=== PATIENT | male | born 1970 | race African-American/Black ===

== ENCOUNTER 2019-09-12 10:20 | Inpatient (IN) | payer MEDICAID ==
[~2019-09-12] VITALS: Ht 188 cm; Wt 116.1 kg
[2019-09-12] MEDS ORDERED: ASPirin 81 mg TAB PO ONE (10:30)
[2019-09-12 10:58] LABS: Basophils # (auto) 0 10 ^3/uL (0-0.2); Basophils % (auto) 0.2 % (0.0-2.0); Eosinophils # (auto) 0.1 10 ^3/uL (0-0.8); Eosinophils % (auto) 2.3 % (0.0-7.0); Hematocrit 38.9 % (41.0-53.0); Hemoglobin 13.6 g/dL (13.5-17.5); Lymphocytes % (auto) 35.1 % (10.0-50.0); Mean Corpuscular Hemoglobin 31.7 pg (28.0-32.0); Mean Corpuscular Volume 90.4 fL (80.0-100.0); Monocytes # (auto) 0.5 10 ^3/uL (0-1.3); Monocytes % (auto) 8.8 % (0.0-12.0); Neutrophils % (auto) 53.6 % (37.0-80.0); Nucleated Red Blood Cells % 0.1 %; Platelet Count (auto) 188 10^3/uL (140-450); Red Cell Distribution Width 15.1 % (11.8-14.3); White Blood Cell 5.6 10^3/uL (4.4-10.8)
[2019-09-12 11:16] LABS: Albumin 3.7 g/dL (3.4-5.0); Anion Gap 5 (5-15); Blood Urea Nitrogen 6 mg/dL (7-18); Calcium 8.9 mg/dL (8.5-10.1); Carbon Dioxide 28 mmol/L (21-32); Chloride 105 mmol/L (98-107); Glucose 99 mg/dL (74-106); Potassium 3.7 mmol/L (3.5-5.1); Sodium 138 mmol/L (136-145)
[2019-09-12 11:21] LABS: Alanine Aminotransferase 58 U/L (16-61); Alkaline Phosphatase 73 U/L (45-117); Aspartate Aminotransferase 37 U/L (15-37); BUN/Creatinine Ratio 4.5; Bilirubin, Total 0.5 mg/dL (0.2-1.0); GFR African American 73 mL/min; GFR Non-African American 60 mL/min; Total Protein 8.3 g/dL (6.4-8.2)
[2019-09-12 11:55] LABS: Urine WBC None Seen /hpf (0 - 3)
[2019-09-12 12:04] LABS: Urine Bacteria NONE SEEN /hpf (None Seen); Urine Blood Negative /uL (Negative); Urine Specific Gravity 1.012 (1.001-1.035)
[2019-09-12] MEDS ORDERED: hydrALAZINE HCL 20 MG/ML VL IV PRN (12:30)
[2019-09-12] MEDS ORDERED: NITROGLYCERIN 0.4 MG SL TAB SL PRN (12:30)
[2019-09-12] MEDS ORDERED: ONDANSETRON HCL 4 MG/2 ML VIAL IV PRN (12:30)
[2019-09-12] MEDS ORDERED: MORPHINE SULF INJ 2 MG/ML SYRINGE 1ML IV PRN ×2 (12:30)
[2019-09-12] MEDS ORDERED: HYDROcodone-ACET 5/325MG TAB PO PRN (12:30)
[2019-09-12 14:27] LABS: Magnesium 2.2 mg/dL (1.6-2.6)
[2019-09-12] MEDS ORDERED: ASPI-404 PO (15:22)
[2019-09-12 17:00] VITALS: BP 144/99
[2019-09-12] MEDS: ATORVASTATIN 20 MG TAB PO SCH (21:30)
[2019-09-12] MEDS: METOPROLOL TARTRATE 25 MG TAB PO SCH (21:30)
[2019-09-12 21:47] VITALS: BP 154/84
[2019-09-13 05:00] VITALS: BP 162/82
[2019-09-13 05:49] LABS: Basophils # (auto) 0 10 ^3/uL (0-0.2); Basophils % (auto) 0.4 % (0.0-2.0); Eosinophils # (auto) 0.2 10 ^3/uL (0-0.8); Eosinophils % (auto) 2.7 % (0.0-7.0); Hematocrit 42.3 % (41.0-53.0); Hemoglobin 14.4 g/dL (13.5-17.5); Lymphocytes # (auto) 2.2 10 ^3/uL (0.4-5.4); Lymphocytes % (auto) 39.5 % (10.0-50.0); Mean Corpuscular Hemoglobin 30.9 pg (28.0-32.0); Mean Corpuscular Hgb Conc. 34.1 g/dL (32.0-36.0); Mean Corpuscular Volume 90.6 fL (80.0-100.0); Monocytes # (auto) 0.5 10 ^3/uL (0-1.3); Monocytes % (auto) 9.3 % (0.0-12.0); Neutrophils # (auto) 2.7 10 ^3/uL (1.6-8.6); Neutrophils % (auto) 48.1 % (37.0-80.0); Nucleated Red Blood Cells % 0.1 %; Platelet Count (auto) 197 10^3/uL (140-450); Red Blood Cells 4.67 10^6/uL (4.5-5.90); Red Cell Distribution Width 14.5 % (11.8-14.3); White Blood Cell 5.6 10^3/uL (4.4-10.8)
[2019-09-13 06:04] LABS: INR 1.03 (0.9-1.15); Partial Thromboplastin Time 28.3 sec (23.64-32.05)
[2019-09-13 06:20] LABS: BUN/Creatinine Ratio 7.2
[2019-09-13] MEDS ORDERED: ADENOSINE 98 MG in GIVE UN-DILUTED 0 ML IV STA (08:24)
[2019-09-13] MEDS: ASPirin-EC 81 mg tab PO SCH ×2 (08:49→10:13)
[2019-09-13] MEDS: FAMOTIDINE 20 MG TAB PO SCH ×2 (08:50→10:13)
[2019-09-13] MEDS: LISINOPRIL 10 MG TAB PO SCH ×2 (08:50→10:14)
[2019-09-13] MEDS: METOPROLOL TARTRATE 25 MG TAB PO SCH ×3 (08:50→22:17)
[2019-09-13 08:56] VITALS: BP 166/97
[2019-09-13 09:00] VITALS: BP 148/95
[2019-09-13 13:00] VITALS: BP_SYST 152; BP_SYST 155; BP_SYST 158; BP_DIAS 112; BP_DIAS 88; BP_DIAS 93
[2019-09-13 17:00] VITALS: BP 155/85
[2019-09-13] MEDS: ACETAMINOPHEN 500 MG TAB PO PRN (17:09)
[2019-09-13 22:00] VITALS: BP 153/88
[2019-09-13] MEDS: ATORVASTATIN 20 MG TAB PO SCH (22:17)
[2019-09-14] MEDS: SODIUM CHLORIDE 0.9% 1,000 ML IV SCH ×3 (00:07→16:53)
[2019-09-14] MEDS: ACETAMINOPHEN 500 MG TAB PO PRN (00:59)
[2019-09-14 05:00] VITALS: BP 122/75
[2019-09-14 08:30] VITALS: BP 138/98
[2019-09-14 08:58] LABS: Basophils # (auto) 0 10 ^3/uL (0-0.2); Basophils % (auto) 0.6 % (0.0-2.0); Eosinophils # (auto) 0.1 10 ^3/uL (0-0.8); Eosinophils % (auto) 0.8 % (0.0-7.0); Hematocrit 42.1 % (41.0-53.0); Hemoglobin 14.5 g/dL (13.5-17.5); Lymphocytes # (auto) 1.4 10 ^3/uL (0.4-5.4); Lymphocytes % (auto) 20.4 % (10.0-50.0); Mean Corpuscular Hgb Conc. 34.3 g/dL (32.0-36.0); Mean Corpuscular Volume 90.3 fL (80.0-100.0); Monocytes # (auto) 0.4 10 ^3/uL (0-1.3); Monocytes % (auto) 6.3 % (0.0-12.0); Neutrophils # (auto) 4.8 10 ^3/uL (1.6-8.6); Neutrophils % (auto) 71.9 % (37.0-80.0); Platelet Count (auto) 216 10^3/uL (140-450); Red Blood Cells 4.66 10^6/uL (4.5-5.90); Red Cell Distribution Width 14.6 % (11.8-14.3); White Blood Cell 6.7 10^3/uL (4.4-10.8)
[2019-09-14 09:00] VITALS: BP 138/96
[2019-09-14 09:13] LABS: INR 1.06 (0.9-1.15); Partial Thromboplastin Time 29.1 sec (23.64-32.05)
[2019-09-14 09:15] LABS: BUN/Creatinine Ratio 7.9; Calcium 9.1 mg/dL (8.5-10.1); Potassium 3.9 mmol/L (3.5-5.1)
[2019-09-14] MEDS: METOPROLOL TARTRATE 25 MG TAB PO SCH ×2 (10:00→20:18)
[2019-09-14] MEDS: FAMOTIDINE 20 MG TAB PO SCH (10:00)
[2019-09-14] MEDS: LISINOPRIL 10 MG TAB PO SCH (10:00)
[2019-09-14] MEDS: ASPirin-EC 81 mg tab PO SCH (10:00)
[2019-09-14] MEDS ORDERED: LORazepam 2MG/ML-1ML VIAL IV ONE (10:30)
[2019-09-14] MEDS ORDERED: ANGIOMAX 250 MG VIAL IV ONE (10:52)
[2019-09-14] MEDS ORDERED: fentaNYL CITRATE 100 MCG/2 ML VL ONE (10:52)
[2019-09-14] MEDS ORDERED: MIDAZOLAM HCL 1MG/1ML-2 ML VIAL ONE (10:52)
[2019-09-14] MEDS ORDERED: HEPARIN SODIUM (PORCINE) 5000 UNITS/ML 1ML VIAL ONE (10:53)
[2019-09-14] MEDS ORDERED: LIDOCAINE 2%HCL (LOCAL ANESTH.) INJ 20ML MDV ONE (10:53)
[2019-09-14] MEDS ORDERED: IODIXANOL 320MG/ML 100ML BTL IV ONE (10:53)
[2019-09-14] MEDS ORDERED: VERAPAMIL 2.5MG/ML INJ 2ML VIAL IV ONE ×2 (10:53→11:52)
[2019-09-14] MEDS ORDERED: SODIUM CHL 0.9% 0 ML ONE (10:53)
[2019-09-14] MEDS ORDERED: METOPROLOL TARTRATE 1MG/1ML-5ML VIAL IV ONE (12:06)
[2019-09-14 13:40] VITALS: BP 128/77
[2019-09-14 17:00] VITALS: BP 123/73
[2019-09-14] MEDS: ATORVASTATIN 20 MG TAB PO SCH (20:18)
[2019-09-14 22:00] VITALS: BP 113/70
[2019-09-15] MEDS: SODIUM CHLORIDE 0.9% 1,000 ML IV SCH (01:55)
[2019-09-15 04:49] VITALS: BP 130/79
[2019-09-15 08:00] VITALS: BP 125/73
[2019-09-15 09:00] VITALS: BP 125/73
[2019-09-15] MEDS: ASPirin-EC 81 mg tab PO SCH (09:25)
[2019-09-15] MEDS: FAMOTIDINE 20 MG TAB PO SCH (09:26)
[2019-09-15] MEDS: METOPROLOL TARTRATE 25 MG TAB PO SCH (09:26)
[2019-09-15] MEDS: LISINOPRIL 10 MG TAB PO SCH (09:28)
[2019-09-15 10:37] VITALS: BP 125/73
== END 2019-09-15 11:30 | disposition home or self-care (01) | DRG 192 ==
LOC: ER 10:20 → TELE 10:21 → TELE-WESTW 13:16
PROVIDERS: ADMIT Nurse Practitioner Acute Care; ATTEND Internal Medicine
PROC: 4A023N7 Measurement of Cardiac Sampling and Pressure, Left Heart, Percutaneous Approach (ICD-10-PCS; principal; 2019-09-14)
PROC: B2111ZZ Fluoroscopy of Multiple Coronary Arteries using Low Osmolar Contrast (ICD-10-PCS; 2019-09-14)
PROC: B2151ZZ Fluoroscopy of Left Heart using Low Osmolar Contrast (ICD-10-PCS; 2019-09-14)
DX: R07.89 Other chest pain (principal); N18.3 Chronic kidney disease, stage 3 (moderate); E66.9 Obesity, unspecified; I12.9 Hypertensive chronic kidney disease with stage 1 through stage 4 chronic kidney disease, or unspecified chronic kidney disease; I45.2 Bifascicular block; E78.5 Hyperlipidemia, unspecified; H54.7 Unspecified visual loss; Z68.32 Body mass index [BMI] 32.0-32.9, adult; Z86.73 Personal history of transient ischemic attack (TIA), and cerebral infarction without residual deficits
CPT/HCPCS: 36415; 71045; 78452; 80048; 80053; 80061; 81001; 83735; 84443; 84484; 85025; 85610; 85730; 86141; 86850; 86900; 86901; 93005; 93017; 93306; 93458; 99152; G0378; J0153; J2250; Q9967

== ENCOUNTER 2020-11-20 03:00 | Emergency (ER) | payer MEDICAID ==
[~2020-11-20 03:00] MED LIST: ASPI-543 PO
== END 2020-11-20 07:40 | disposition left against medical advice (07) ==
LOC: ER 03:00
DX: R22.31 Localized swelling, mass and lump, right upper limb (principal); Z53.21 Procedure and treatment not carried out due to patient leaving prior to being seen by health care provider

== ENCOUNTER 2022-03-15 07:39 | Emergency (ER) | payer MEDICAID ==
[~2022-03-15] VITALS: Ht 185.4 cm; Wt 116.0 kg
[2022-03-15] MEDS ORDERED: SODIUM CHLORIDE 0.9% 1,000 ML IV ONE (10:15)
[2022-03-15 10:54] LABS: Basophils # (auto) 0 10 ^3/uL (0-0.2); Basophils % (auto) 0.4 % (0.0-2.0); Eosinophils # (auto) 0 10 ^3/uL (0-0.8); Eosinophils % (auto) 0.1 % (0.0-7.0); Hematocrit 40.8 % (41.0-53.0); Hemoglobin 13.6 g/dL (13.5-17.5); Lymphocytes # (auto) 0.6 10 ^3/uL (0.4-5.4); Lymphocytes % (auto) 5.9 % (10.0-50.0); Mean Corpuscular Hgb Conc. 33.3 g/dL (32.0-36.0); Mean Corpuscular Volume 90.1 fL (80.0-100.0); Monocytes # (auto) 0.3 10 ^3/uL (0-1.3); Monocytes % (auto) 3.1 % (0.0-12.0); Neutrophils # (auto) 8.6 10 ^3/uL (1.6-8.6); Neutrophils % (auto) 90.5 % (37.0-80.0); Nucleated Red Blood Cells % 0.1 %; Red Blood Cells 4.53 10^6/uL (4.5-5.90); Red Cell Distribution Width 14.6 % (11.8-14.3); White Blood Cell 9.4 10^3/uL (4.4-10.8)
[2022-03-15] MEDS ORDERED: cefTRIAXone 1GM/50ML D5W 50 ML IV ONE (11:45)
[2022-03-15] MEDS ORDERED: MORPHINE SULFATE 4 MG/ML SYR/VIAL IV ONE (13:00)
[2022-03-15] MEDS ORDERED: ONDANSETRON HCL 4 MG/2 ML VIAL IV ONE (13:00)
[2022-03-15 13:09] LABS: Calcium 8.7 mg/dL (8.5-10.1); Magnesium 2.1 mg/dL (1.6-2.6); Potassium 3.7 mmol/L (3.5-5.1)
[2022-03-15 13:13] LABS: Bilirubin, Total 0.4 mg/dL (0.2-1.0); Total Protein 8.5 g/dL (6.4-8.2)
[2022-03-15 14:25] VITALS: BP 188/102
[2022-03-15] MEDS ORDERED: LABETALOL HCL 5 MG/ML 4ML SYRINGE IV ONE (14:45)
== END 2022-03-15 14:47 | disposition short-term general hospital (02) ==
LOC: ER 07:39
DX: S02.40CA Maxillary fracture, right side, initial encounter for closed fracture (principal); S02.2XXA Fracture of nasal bones, initial encounter for closed fracture; S05.11XA Contusion of eyeball and orbital tissues, right eye, initial encounter; J32.0 Chronic maxillary sinusitis; I25.2 Old myocardial infarction; Z86.73 Personal history of transient ischemic attack (TIA), and cerebral infarction without residual deficits; Y04.8XXA Assault by other bodily force, initial encounter; Y93.89 Activity, other specified; Y92.89 Other specified places as the place of occurrence of the external cause; Y99.8 Other external cause status
CPT/HCPCS: 36415; 70450; 70486; 80053; 83735; 85025; 96365; 96375; 99285; J0696; J2270; J2405; J3490; J7030